=== PATIENT | male | born 1960 | race African-American/Black ===

== ENCOUNTER 2017-03-23 22:01 | Emergency (ER) | payer SELFPAY ==
[~2017-03-23] VITALS: Ht 175.3 cm; Wt 108.9 kg
[2017-03-23 22:10] VITALS: BP 149/94
[2017-03-23] MEDS ORDERED: NEXAFED30 MG ORAL (22:32)
[2017-03-23] MEDS ORDERED: IBUPROFEN600 MG ORAL (22:32)
--- NOTE | 2017-03-23 22:32 | Emergency Room Report ---
History of Present Illness General Chief Complaint: Upper Respiratory Illness Source: Patient Present Illness HPI Is a 56-year-old male with no past medical history. He presents with chief complaint of congestion and sore throat. Onset for last couple days. Low grade fever. No nausea no vomiting. Last week he had a viral/flulike illness and got better on it. Allergies: Coded Allergies: PENICILLINS (Verified Allergy, Unknown, 03/23/17) Patient History Past Medical History: see triage record, old chart reviewed Past Surgical History: none Pertinent Family History: none Social History: Denies: smoking Immunizations: other Reviewed Nursing Documentation: PMH: Agreed, PSxH: Agreed Nursing Documentation-PMH Past Medical History: No Stated History Review of Systems Constitutional: Reports: chills, fever Eye: Denies: eye pain, blurred vision ENT: Reports: nose congestion, throat pain Respiratory: Reports: cough Cardiovascular: Denies: chest pain, palpitations Gastrointestinal: Denies: abdominal pain, diarrhea, nausea, vomiting Musculoskeletal: Denies: back pain, joint pain Skin: Denies: rash Neurological: Denies: headache, numbness Endocrine: Denies: increased thirst, increased urine Hematologic/Lymphatic: Denies: easy bruising All Other Systems: negative except mentioned in HPI Physical Exam Vital Signs Date Time Temp Pulse Resp B/P (MAP) Pulse Ox O2 Delivery O2 Flow Rate FiO2 03/23/17 22:10 101.1 93 16 149/94 99 Room Air vitals with low-grade Sp02 EP Interpretation: reviewed, normal General Appearance: well appearing, no apparent distress, alert Head: normocephalic, atraumatic Eyes: bilateral eye PERRL, bilateral eye EOMI ENT: hearing grossly normal, normal pharynx Neck: full range of motion, supple, no meningismus Respiratory: chest non-tender, lungs clear, normal breath sounds Cardiovascular #1: regular rate, rhythm, no murmur Gastrointestinal: normal bowel sounds, non tender, no mass, no organomegaly, no bruit, non-distended Musculoskeletal: back normal, gait/station normal, normal range of motion Psychiatric: mood/affect normal Skin: warm/dry Medical Decision Making Diagnostic Impression: Primary Impression: Upper respiratory infection Qualified Codes: J06.9 - Acute upper respiratory infection, unspecified ER Course Patient with a viral infection. No evidence of pneumonia. No evidence of meningitis. We'll discharge home. Outside of the window for Tamiflu. Last Vital Signs Date Time Temp Pulse Resp B/P (MAP) Pulse Ox O2 Delivery O2 Flow Rate FiO2 03/23/17 22:10 101.1 93 16 149/94 99 Room Air Status: unchanged Disposition: HOME, SELF-CARE Condition: Stable Scripts Pseudoephedrine Hcl* (NEXAFED*) 30 Mg Tablet 60 MG ORAL Q6H Y for congestion, #30 TAB Prov: MATI PALMA M.D. 03/23/17 Ibuprofen* (MOTRIN*) 600 Mg Tablet 600 MG ORAL THREE TIMES A DAY, #30 TAB 0 Refills Prov: MATI PALMA M.D. 03/23/17 Patient Instructions: Upper Respiratory Infection, Adult Additional Instructions: Followup with your Dr. in 7 days. Increase fluid. Saltwater gargle. Return if symptom worsen. MATI PALMA M.D. Mar 23, 2017 22:32
[2017-03-23 22:45] VITALS: BP 149/94
== END 2017-03-23 22:45 | disposition home or self-care (01) ==
LOC: EMR 22:14
DX: J06.9 Acute upper respiratory infection, unspecified (principal); Z88.0 Allergy status to penicillin
CPT/HCPCS: 99284